=== PATIENT | male | born 1990 | race African-American/Black ===

== ENCOUNTER 2023-10-25 00:21 | Emergency (ER) | payer BC ==
[~2023-10-25] VITALS: Ht 170.2 cm; Wt 74.0 kg
[2023-10-25 00:32] VITALS: O2SAT 100
[2023-10-25 00:43] VITALS: BP 148/93; PULSE 85; RESP 18; TEMP 98.2; O2SAT 99
== END 2023-10-25 05:00 ==
LOC: ER 00:21
DX: R51.9 Headache, unspecified (principal); Z53.21 Procedure and treatment not carried out due to patient leaving prior to being seen by health care provider
CPT/HCPCS: 93005